=== PATIENT | male | born 1980 | race Caucasian/White ===

== ENCOUNTER 2022-03-01 16:31 | Inpatient (IN) | payer BC ==
[2022-03-01] MEDS ORDERED: AMPICILLIN-SULBACTAM 3 GM in SODIUM CHLORIDE 0.9% 100 ML IVPB STA (16:57)
[2022-03-01] MEDS ORDERED: SODIUM CHLORIDE 0.9% 1,000 ML IV ONE (16:57)
[2022-03-01] MEDS ORDERED: LABETALOL 5 MG/ML VIAL MDV IVP STA ×2 (16:58→19:33)
--- NOTE | 2022-03-01 17:01 | ED ---
Skin/Abscess/FB HPI - General Chief complaint: Skin/Abscess/Foreign Body Stated complaint: Boil Time Seen by Provider: 03/01/22 16:38 Source: patient, RN notes reviewed Mode of arrival: ambulatory Limitations: no limitations - History of Present Illness Initial comments: This is a pleasant 41-year-old male with a history of hypertension. He presents to emergency department today complaining of a "boil "to his rectal area. Patient states it seemed to start this morning. Patient states he felt like he had to have a bowel movement. It felt like something was blocking the way. He is denying any pain. Patient is getting some mucoid discharge in the area at this time. Has no history of similar afflictions. Patient does have a history of hypertension was noted be hypertensive in triage. Initial blood pressure 242/137. Patient states that he previously was treated with antihypertensives but does not take them. Patient denying any other symptomology at this time. Patient does smoke cigarettes occasionally. No headache, no fever or chills, no changes in vision or hearing, no sore throat or difficulty with speech, no neck pain, no chest pain or shortness of breath, no abdominal pain, no nausea or vomiting, no changes in urination or bowel movements, no numbness or tingling, no extremity pain, no skin rashes or lesions. Past medical, surgical, social, and family history reviewed. - Related Data Home Medications Medication Instructions Recorded Confirmed No Known Home Medications 03/01/22 03/01/22 Allergies Allergy/AdvReac Type Severity Reaction Status Date / Time No Known Allergies Allergy Verified 03/01/22 20:02 Review of Systems ROS Statement: Those systems with pertinent positive or pertinent negative responses have been documented in the HPI. ROS Other: All systems not noted in ROS Statement are negative. Past Medical History Past Medical History: Hypertension History of Any Multi-Drug Resistant Organisms: None Reported Past Surgical History: No Surgical Hx Reported Smoking Status: Current every day smoker Past Alcohol Use History: None Reported Past Drug Use History: Marijuana General Exam - General Exam Comments Initial Comments: Patient noted to be hypertensive at 242/137. However does not appear to be ill or toxic otherwise. Appears to be mildly anxious. Cranial nerves II through XII grossly intact. Limitations: no limitations General appearance: alert, anxious, obese Head exam: Present: atraumatic, normocephalic, normal inspection Eye exam: Present: normal appearance, PERRL, EOMI. Absent: scleral icterus, conjunctival injection, periorbital swelling ENT exam: Present: normal exam, normal oropharynx, mucous membranes moist, normal external ear exam Neck exam: Present: normal inspection. Absent: tenderness, meningismus, lymphadenopathy Respiratory exam: Present: normal lung sounds bilaterally. Absent: respiratory distress, wheezes, rales, rhonchi, stridor Cardiovascular Exam: Present: regular rate, normal rhythm, normal heart sounds. Absent: systolic murmur, diastolic murmur, rubs, gallop, clicks GI/Abdominal exam: Present: soft, normal bowel sounds. Absent: distended, tenderness, guarding, rebound, rigid Rectal exam: Present: normal rectal tone, mass (Mass noted to the right rectal wall, above the dentate line. This is rather small and barely perceivable. There is a mucoid discharge. No evidence of bleeding. No evidence of purulent discharge. No significant perirectal erythema.), normal prostate. Absent: tenderness, prostate tenderness Extremities exam: Present: normal inspection, full ROM, normal capillary refill. Absent: tenderness, pedal edema, joint swelling, calf tenderness Back exam: Present: normal inspection Neurological exam: Present: alert, oriented X3, CN II-XII intact Psychiatric exam: Present: normal affect, normal mood Skin exam: Present: warm, dry, intact, normal color. Absent: rash Course Vital Signs 03/01/22 03/01/22 03/01/22 16:37 17:20 17:30 Temperature 98.2 F Pulse Rate 99 89 83 Respiratory 16 15 15 Rate Blood Pressure 242/137 234/129 222/114 O2 Sat by Pulse 95 99 100 Oximetry 03/01/22 03/01/22 03/01/22 17:40 17:45 18:00 Temperature Pulse Rate 82 84 79 Respiratory 14 15 15 Rate Blood Pressure 210/123 210/123 204/126 O2 Sat by Pulse 98 99 99 Oximetry 03/01/22 03/01/22 03/01/22 18:05 18:20 18:45 Temperature Pulse Rate 79 81 Respiratory 16 16 Rate Blood Pressure 175/105 183/115 198/116 O2 Sat by Pulse 100 100 Oximetry 03/01/22 03/01/22 03/01/22 19:05 19:30 19:57 Temperature Pulse Rate 75 88 82 Respiratory 16 18 16 Rate Blood Pressure 214/112 222/121 214/124 O2 Sat by Pulse 99 Oximetry - Reevaluation(s) Reevaluation #1: 03/01/22 19:41 Medical record is reviewed Symptoms are improved here in the emergency department Patient is informed of results and questions answered Patient in no distress Blood pressure came down initially but now has climbed back up again. - Consultations Consultation #1: Call placed for [facility] for depression, surgical consultation Dr. Lombardo Medical Decision Making - Medical Decision Making Patient symptomology consistent with possible internal hemorrhoid. Of course a small perianal abscess is within normal possibility. There is mucoid discharge noted. Patient does not appear to be ill or toxic otherwise. However the patient is very hypertensive and barely is not compliant with his blood pressure medication. We'll do a general workup. I'm going to image the patient's pelvis given the symptomology. Given the findings on computed tomography scan and the hypertensive urgency, going to admit the patient for further evaluation and treatment. We'll keep the patient on antibiotics. The case was discussed in detail with ED attending physician. Presentation, findings, treatment plan discussed in detail. The resident Dr. Hanna Case was actually discussed with Dr. Nicole ([facility]) admission for hypertensive urgency and surgical consultation - Lab Data Result diagrams: 03/01/22 17:14 03/01/22 17:14 Lab Results 03/01/22 03/01/22 03/01/22 Range/Units 17:14 17:14 19:29 WBC 7.4 (3.8-10.6) k/uL RBC 5.40 (4.30-5.90) m/uL Hgb 15.0 (13.0-17.5) gm/dL Hct 44.3 (39.0-53.0) % MCV 82.0 (80.0-100.0) fL MCH 27.8 (25.0-35.0) pg MCHC 33.9 (31.0-37.0) g/dL RDW 13.1 (11.5-15.5) % Plt Count 209 (150-450) k/uL MPV 8.1 Neutrophils % 75 % Lymphocytes % 19 % Monocytes % 4 % Eosinophils % 1 % Basophils % 0 % Neutrophils # 5.5 (1.3-7.7) k/uL Lymphocytes # 1.4 (1.0-4.8) k/uL Monocytes # 0.3 (0-1.0) k/uL Eosinophils # 0.1 (0-0.7) k/uL Basophils # 0.0 (0-0.2) k/uL Sodium 136 L (137-145) mmol/L Potassium 4.2 (3.5-5.1) mmol/L Chloride 101 (98-107) mmol/L Carbon Dioxide 22 (22-30) mmol/L Anion Gap 13 mmol/L BUN 13 (9-20) mg/dL Creatinine 0.51 L (0.66-1.25) mg/dL Est GFR (CKD-EPI)AfAm >90 (>60 ml/min/1.73 sqM) Est GFR (CKD-EPI)NonAf >90 (>60 ml/min/1.73 sqM) Glucose 169 H (74-99) mg/dL Calcium 9.3 (8.4-10.2) mg/dL Magnesium 1.7 (1.6-2.3) mg/dL C-Reactive Protein 1.6 H (<1.0) mg/dL Urine Color Light Yellow Urine Appearance Clear (Clear) Urine pH 7.0 (5.0-8.0) Ur Specific [place] 1.036 H (1.001-1.035) Urine Protein Negative (Negative) Urine Glucose (UA) Trace H (Negative) Urine Ketones Negative (Negative) Urine Blood Negative (Negative) Urine Nitrite Negative (Negative) Urine Bilirubin Negative (Negative) Urine Urobilinogen <2.0 (<2.0) mg/dL Ur Leukocyte Esterase Negative (Negative) - EKG Data EKG Comments: EKG done at 1658 and reviewed by the ED attending physician reveals sinus rhythm with a rate of 89, normal intervals, pulmonary disease pattern. 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 No acute ST or T-wave changes. No comparison study. - Radiology Data Radiology results: report reviewed, image reviewed Sigmoid mass consistent with lipoma, 7.5 x 3 cm per radiology Disposition Clinical Impression: Hypertensive urgency, Rectosigmoiditis, Mass of colon Disposition: ADMITTED IP TO THIS [facility] Condition: Fair Referrals: None,Stated [Primary Care Provider] - 1-2 days Time of Disposition: 19:34 Decision to Admit Reason: Admit from EC Decision Time: 19:34
[2022-03-01 17:33] LABS: Basophils % (A) 0 %; Eosinophils # (A) 0.1 k/uL (0-0.7); Eosinophils % (A) 1 %; HCT 44.3 % (39.0-53.0); Lymphocytes # (A) 1.4 k/uL (1.0-4.8); Lymphocytes % (A) 19 %; MCH 27.8 pg (25.0-35.0); MCHC 33.9 g/dL (31.0-37.0); Mean Platelet Volume 8.1; Monocytes # (A) 0.3 k/uL (0-1.0); Monocytes % (A) 4 %; Neutrophils # (A) 5.5 k/uL (1.3-7.7); Neutrophils % (A) 75 %; Platelet Count 209 k/uL (150-450); RDW 13.1 % (11.5-15.5); WBC 7.4 k/uL (3.8-10.6)
[2022-03-01 17:51] LABS: African American GFR (CKD) >90 (>60 ml/min/1.73 sqM); Anion Gap 13 mmol/L; Blood Urea Nitrogen 13 mg/dL (9-20); C Reactive Protein 1.6 mg/dL (<1.0); Calcium 9.3 mg/dL (8.4-10.2); Carbon Dioxide 22 mmol/L (22-30); Chloride 101 mmol/L (98-107); Glucose 169 mg/dL (74-99); Magnesium 1.7 mg/dL (1.6-2.3); Non-African American GFR(CKD) >90 (>60 ml/min/1.73 sqM); Potassium 4.2 mmol/L (3.5-5.1); Sodium 136 mmol/L (137-145)
--- NOTE | 2022-03-01 18:01 | XR ---
EXAMINATION TYPE: XR chest 1V portable DATE OF EXAM: 03/01/2022 COMPARISON: 02/08/2012 HISTORY: Hypertension TECHNIQUE: Single view FINDINGS: Heart and mediastinum are normal. Lungs are clear. Diaphragm is normal. Bony thorax is inta ct. IMPRESSION: Normal chest. No change.
--- NOTE | 2022-03-01 19:09 | CT ---
EXAMINATION TYPE: CT pelvis w con DATE OF EXAM: 03/01/2022 COMPARISON: None HISTORY: Rectal mass CT DLP: 2913 mGycm Automated exposure control for dose reduction was used. CONTRAST: Performed with IV Contrast, patient injected with 100ML mL of Isovue 370. Images obtained from the iliac crests to the floor the pelvis with IV contrast. There is no ascites. The pelvic ring is intact. Proximal femurs and hip joints are intact. Sacroiliac joints are intact. The bladder distends smoothly. No free fluid in the pelvis. There is fat density mass in the mid sigm oid colon consistent with a lipoma that measures 7.5 x 3 cm. No mass seen involving the rectum. No presacral edema. No perirectal mass. IMPRESSION: Large fat density mass in the mid sigmoid colon consistent with a lipoma. No sign of a bowel obstruct ion.
[2022-03-01] MEDS ORDERED: NALOXONE 0.4 MG/ML 1 ML VIAL IV PRN (19:45)
[2022-03-01] MEDS ORDERED: ONDANSETRON 4 MG/2 ML VIAL IVP PRN (19:45)
[2022-03-01] MEDS ORDERED: SODIUM CHLORIDE 0.9% 1,000 ML IV SCH (19:45)
[2022-03-01] MEDS ORDERED: MORPHINE SULFATE 4 MG/ML SYRINGE IV PRN (19:45)
[2022-03-01] MEDS ORDERED: hydrALAZINE HCL 20 MG/ML 1 ML VIAL IVP PRN (19:49)
[2022-03-01] MEDS ORDERED: LORazepam 2 MG/ML INJ IV PRN (20:03)
[2022-03-01] MEDS ORDERED: LORazepam 2 MG/ML INJ IV STA (20:04)
[2022-03-01 20:06] LABS: Appearance,Urine Clear (Clear); Bilirubin,Urine Negative (Negative); Blood,Urine Negative (Negative); Color,Urine Light Yellow; Glucose,Urine (UA) Trace (Negative); Ketones,Urine Negative (Negative); Leukocyte Esterase,Urine Negative (Negative); Nitrite,Urine Negative (Negative); Protein,Urine Negative (Negative); Specific Gravity,Urine 1.036 (1.001-1.035); Urobilinogen,Urine <2.0 mg/dL (<2.0)
--- NOTE | 2022-03-02 01:37 | P.HPIM ---
History of Present Illness H&P Date: 03/01/22 The patient is a 41-year-old male with a PMH of hypertension who presents to the emergency room with complaints of pelvic mass. Patient reports that he had been in his usual state of health until earlier today when he was at work and while attempting to defecate, he palpated a mass in his pelvis. He also reported some fecal hesitancy, which prompted him to come to the emergency room. As per the ED provider, upon rectal exam, mucoid fluid was discharged from the anus. CT pelvis reveals a large fat density mass in the mid sigmoid colon consistent with a lipoma with no signs of bowel obstruction. Patient denied experiencing any pain. He also denied fever, chills, change in bowel habitus. EKG in the emergency room revealed sinus rhythm at 89 bpm with a left anterior fascicular block. Chest x-ray was unremarkable. Laboratory evaluation was remarkable for glucose 169 and CRP 1.6. The patient was severely hypertensive upon presentation with BP 242/137. The patient reports a history of hypertension although reports that he has not seen a physician or taken any antihypertensives for several years. Review of systems: Pertinent positives and negatives as discussed in HPI, a complete review of systems was performed and all other systems are negative. Physical examination: General: non toxic, no distress, appears at stated age, morbidly obese Derm: no unusual rashes/lesions, warm Head: atraumatic, normocephalic, symmetric Eyes: EOMI, no lid lag, anicteric sclera, pupils equal round reactive to light ENT: Nose and ears atraumatic Neck: No cervical lymphadenopathy, trachea midline, supple Mouth: no lip lesion, mucus membranes moist Cardiovascular: S1S2 reg, no murmur, positive dorsalis pedis pulse bilateral, no edema Lungs: CTA bilateral, no rhonchi, no rales, no accessory muscle use Abdominal: soft, nontender to palpation, no guarding Rectal exam: No obvious rectal mass or skin abnormality noted, no tenderness or discharge appreciated Ext: muscle strength 5 out of 5 in all 4 extremities grossly, no gross muscle atrophy, no contractures, Neuro: CN II-XI grossly intact, no gross focal neuro deficits Psych: Alert, oriented, appropriate affect Assessment/plan Hypertensive urgency -Start patient on Norvasc and hydrochlorothiazide -Strongly urged patient on importance of adequate blood pressure control for long-term health Pelvic mass with concern for possible discharge and abscess -Currently low suspicion for infected mass -Surgery consulted -Follow up blood culture DVT prophylaxis -Heparin subcu The patient is admitted with an anticipated greater than 2 midnight stay for evaluation of hypertensive urgency. CODE STATUS: Full Code Discussed with: Patient Anticipated discharge date: in am Anticipated discharge place: Home Past Medical History Past Medical History: Hypertension History of Any Multi-Drug Resistant Organisms: None Reported Past Surgical History: No Surgical Hx Reported Smoking Status: Current every day smoker Past Alcohol Use History: None Reported Past Drug Use History: Marijuana - Past Family History Father Family Medical History: Hypertension Medications and Allergies Home Medications Medication Instructions Recorded Confirmed Type No Known Home Medications 03/01/22 03/01/22 History Allergies Allergy/AdvReac Type Severity Reaction Status Date / Time No Known Allergies Allergy Verified 03/01/22 20:02 Physical Exam Vitals: Vital Signs Temp Pulse Resp BP Pulse Ox 03/02/22 01:00 82 18 192/107 98 03/01/22 22:51 76 18 149/108 98 03/01/22 21:23 76 18 201/112 98 03/01/22 20:45 76 18 206/115 03/01/22 19:57 82 16 214/124 03/01/22 19:30 88 18 222/121 03/01/22 19:05 75 16 214/112 99 03/01/22 18:45 198/116 03/01/22 18:20 81 16 183/115 100 03/01/22 18:05 79 16 175/105 100 03/01/22 18:00 79 15 204/126 99 03/01/22 17:45 84 15 210/123 99 03/01/22 17:40 82 14 210/123 98 03/01/22 17:30 83 15 222/114 100 03/01/22 17:20 89 15 234/129 99 03/01/22 16:37 98.2 F 99 16 242/137 95 Intake and Output 03/01/22 03/01/22 03/02/22 14:59 22:59 06:59 Other: Weight 158.757 kg Results CBC & Chem 7: 03/01/22 17:14 03/01/22 17:14 Labs: Abnormal Lab Results - Last 24 Hours (Table) 03/01/22 03/01/22 Range/Units 17:14 19:29 Sodium 136 L (137-145) mmol/L Creatinine 0.51 L (0.66-1.25) mg/dL Glucose 169 H (74-99) mg/dL C-Reactive Protein 1.6 H (<1.0) mg/dL Ur Specific Alpha 1.036 H (1.001-1.035) Urine Glucose (UA) Trace H (Negative)
[2022-03-02] MEDS: AMPICILLIN-SULBACTAM 3 GM in SODIUM CHLORIDE 0.9% 100 ML IVPB SCH ×6 (06:12→23:24)
[2022-03-02] MEDS ORDERED: amLODIPine 10 MG TAB PO STA (06:24)
[2022-03-02 08:34] LABS: Basophils % (A) 0 %; Eosinophils # (A) 0.2 k/uL (0-0.7); Eosinophils % (A) 3 %; HCT 43.3 % (39.0-53.0); HGB 14.5 gm/dL (13.0-17.5); Lymphocytes # (A) 1.1 k/uL (1.0-4.8); Lymphocytes % (A) 14 %; MCH 27.9 pg (25.0-35.0); MCHC 33.5 g/dL (31.0-37.0); MCV 83.3 fL (80.0-100.0); Monocytes # (A) 0.4 k/uL (0-1.0); Monocytes % (A) 5 %; Neutrophils # (A) 6.5 k/uL (1.3-7.7); Neutrophils % (A) 79 %; Platelet Count 180 k/uL (150-450); RDW 13.4 % (11.5-15.5); WBC 8.3 k/uL (3.8-10.6)
[2022-03-02 08:46] LABS: African American GFR (CKD) >90 (>60 ml/min/1.73 sqM); Anion Gap 9 mmol/L; Blood Urea Nitrogen 8 mg/dL (9-20); Calcium 8.5 mg/dL (8.4-10.2); Carbon Dioxide 20 mmol/L (22-30); Chloride 104 mmol/L (98-107); Glucose 171 mg/dL (74-99); Non-African American GFR(CKD) >90 (>60 ml/min/1.73 sqM); Potassium 3.9 mmol/L (3.5-5.1); Sodium 133 mmol/L (137-145)
[2022-03-02] MEDS: HEPARIN SODIUM,PORCINE/PF 5,000 UNIT/0.5 ML SYRINGE SQ SCH ×3 (09:21→23:25)
[2022-03-02] MEDS ORDERED: hydrALAZINE HCL 25 MG TAB PO STA (11:12)
[2022-03-02] MEDS: LOSARTAN 50 MG TAB PO SCH (13:08)
[2022-03-02] MEDS: LORazepam 1 MG/0.5 ML VIAL IV PRN ×2 (13:18→21:16)
--- NOTE | 2022-03-02 13:22 | P.PN ---
Subjective Progress Note Date: 03/02/22 Patient has no new complaints at the time of evaluation. Blood pressures are still quite high. Surgery consult is pending. Patient feels like the mass in his pelvis is less prominent. Gen: awake, alert HEENT: normocephalic, atraumatic, good hearing acuity, moist mucous membranes Resp: good air exchange, breathing comfortably with no accessory muscle use CVS: good distal perfusion x 4, GI: soft, NTTP, ND : no SPT, no CVAT, barry catheter not present MSK: no pitting edema, no clubbing Neuro: non-focal, moving all extremities Psych: cooperative, euthymic mood Assessment/plan: Hypertensive urgency -Start patient on Norvasc and hydrochlorothiazide -Added losartan -Added hydralazine PRN for high BP -Strongly urged patient on importance of adequate blood pressure control for long-term health Pelvic mass with concern for possible discharge and abscess -Currently low suspicion for infected mass -Surgery consulted, pending recs -Follow up blood culture -on unasyn DVT prophylaxis -Heparin subcu The patient is admitted with an anticipated greater than 2 midnight stay for evaluation of hypertensive urgency. CODE STATUS: Full Code Discussed with: Patient Anticipated discharge date: in am Anticipated discharge place: Home Objective - Vital Signs Vital signs: Vital Signs Temp 97.7 F 03/02/22 08:39 Pulse 90 03/02/22 12:34 Resp 18 03/02/22 12:34 BP 188/110 03/02/22 12:34 Pulse Ox 98 03/02/22 12:34 FiO2 Intake & Output 03/01/22 03/02/22 03/02/22 18:59 06:59 18:59 Weight 158.757 kg - Labs CBC & Chem 7: 03/02/22 08:20 03/02/22 08:20 Labs: Abnormal Lab Results - Last 24 Hours (Table) 03/01/22 03/01/22 03/02/22 Range/Units 17:14 19:29 08:20 Sodium 136 L 133 L (137-145) mmol/L Carbon Dioxide 20 L (22-30) mmol/L BUN 8 L (9-20) mg/dL Creatinine 0.51 L 0.45 L (0.66-1.25) mg/dL Glucose 169 H 171 H (74-99) mg/dL C-Reactive Protein 1.6 H (<1.0) mg/dL Ur Specific [place] 1.036 H (1.001-1.035) Urine Glucose (UA) Trace H (Negative)
[2022-03-02] MEDS: ACETAMINOPHEN TAB 325 MG TAB PO PRN (14:15)
[2022-03-02] MEDS ORDERED: NITROGLYCERIN-D5W PMX 50 MG in DEXTROSE/WATER 1 250ML.BAG IV SCH (14:30)
--- NOTE | 2022-03-02 15:35 | P.GSCN ---
History of Present Illness Consult date: 03/02/22 Reason for Consult: Lipoma of the sigmoid seen on CT, hypertensive urgency History of present illness: Patient is a 41-year-old gentleman who presented to [facility] emergency department on 03/01/2022 with reports of some manner of prolapsing lesion on bowel movement earlier that day. He tells me that he had a normal bowel movement prior to that, felt like he had to go to the bathroom again had some sort of lesion prolapse which retracted on its own. He may have had some mucoid discharge, denies bleeding. He has had issues with hemorrhoids in the more distant past. His never undergone any manner of endoscopy. Has no known personal history of inflammatory bowel disease, no known family history of the same, no known family history of colon cancer or colon polyps quadrant surgical resection. He denies associated pain. He does seem to have a history of prediabetes, he tells me he's been on and off metformin multiple times over the past year or more. On arrival in the emergency department he had a markedly high blood pressure at 242/137. He denies chest pain, shortness of breath, or orthostatic symptoms. He's been admitted to the hospitalist service and started on nitro drip. There is report that he's been prescribed outpatient antihypertensives and has been noncompliant, patient tells me he is not maintain ed on any medications for blood pressure on an outpatient basis. He admits to occasional issues with diarrhea but not routinely, no reported problems with constipation or obstipation. No reported signs of GI bleeding. A computed tomography scan of the pelvis was obtained, images and official report were reviewed. There is an approximately 7.5 x 3.5 cm intramural lesion of the mid sigmoid consistent with benign lipoma. There is no evidence of associated obstruction. There are no regional inflammatory changes, no evidence of pelvic or perirectal abscess or fluid collection. No signs of colitis. Laboratory studies are unimpressive. White blood cell count today is 8.3, hemoglobin 14.5, platelet count 180. No evidence of iron deficiency on differential. RDW normal range at 13.4. Serum sodium slightly low at 133, potassium 3.9, CO2 of 20, creatinine 0.45, glucose of 171. C-reactive protein was minimally elevated at 1.6. Urinalysis showed trace glucose, otherwise normal. Review of Systems All systems: negative - Constitutional Reports as per HPI Past Medical History Past Medical History: Hypertension Additional Past Medical History / Comment(s): Obesity, "on and off of diabetic medication" History of Any Multi-Drug Resistant Organisms: None Reported Past Surgical History: No Surgical Hx Reported Past Anesthesia/Blood Transfusion Reactions: No Reported Reaction Past Psychological History: Anxiety, Depression, PTSD Smoking Status: Current some day smoker Past Alcohol Use History: Rare Past Drug Use History: Marijuana Additional Drug Use History / Comment(s): Marijuana daily recreationally. Pt smokes "maybe one" cigarette a day. - Past Family History Father Family Medical History: Hypertension Mother Family Medical History: CVA/TIA, Diabetes Mellitus, Hypertension Medications and Allergies Home Medications Medication Instructions Recorded Confirmed Type No Known Home Medications 03/01/22 03/01/22 History Allergies Allergy/AdvReac Type Severity Reaction Status Date / Time No Known Allergies Allergy Verified 03/01/22 20:02 Surgical - Exam Osteopathic Statement: *. No significant issues noted on an osteopathic st ructural exam other than those noted in the History and Physical/Consult. Vital Signs Temp Pulse Resp BP Pulse Ox 98.2 F 99 16 242/137 95 03/01/22 16:37 03/01/22 16:37 03/01/22 16:37 03/01/22 16:37 03/01/22 16:37 - General well developed, well nourished, no distress, obese - Eyes PERRL, normal ocular movement - ENT normal pinna, normal nares, normal mucosa, no hearing loss, no congestion - Neck trachea midline, no venous distension - Respiratory normal expansion, normal respiratory effort, clear to auscultation - Cardiovascular Rhythm: regular - Abdomen Abdomen is soft, nontender palpation, no guarding rebound or distention. No evidence of peritonitis, no suprapubic tenderness to palpation. Abdomen: soft, non tender - Rectum Adequate sphincter tone, no perianal pathology noted, no intraluminal mass, no significant hemorrhoidal disease appreciated. No evidence of GI bleeding. Rectum: normal sphincter tone, no hemorrhoids, no tenderness, no masses, no bleeding - Neurologic GCS 15 normal coordination, normal sensation - Psychiatric oriented to time, oriented to person, oriented to place, speech is normal, m eufemia intact Results - Labs 03/02/22 08:20 03/02/22 08:20 Abnormal Lab Results - Last 24 Hours (Table) 03/01/22 03/01/22 03/02/22 Range/Units 17:14 19:29 08:20 Sodium 136 L 133 L (137-145) mmol/L Carbon Dioxide 20 L (22-30) mmol/L BUN 8 L (9-20) mg/dL Creatinine 0.51 L 0.45 L (0.66-1.25) mg/dL Glucose 169 H 171 H (74-99) mg/dL C-Reactive Protein 1.6 H (<1.0) mg/dL Ur Specific [place] 1.036 H (1.001-1.035) Urine Glucose (UA) Trace H (Negative) Diabetes panel 03/01/22 03/02/22 Range/Units 17:14 08:20 Sodium 136 L 133 L (137-145) mmol/L Potassium 4.2 3.9 (3.5-5.1) mmol/L Chloride 101 104 (98-107) mmol/L Carbon Dioxide 22 20 L (22-30) mmol/L BUN 13 8 L (9-20) mg/dL Creatinine 0.51 L 0.45 L (0.66-1.25) mg/dL Glucose 169 H 171 H (74-99) mg/dL Calcium 9.3 8.5 (8.4-10.2) mg/dL Calcium panel 03/01/22 03/02/22 Range/Units 17:14 08:20 Calcium 9.3 8.5 (8.4-10.2) mg/dL Pituitary panel 03/01/22 03/02/22 Range/Units 17:14 08:20 Sodium 136 L 133 L (137-145) mmol/L Potassium 4.2 3.9 (3.5-5.1) mmol/L Chloride 101 104 (98-107) mmol/L Carbon Dioxide 22 20 L (22-30) mmol/L BUN 13 8 L (9-20) mg/dL Creatinine 0.51 L 0.45 L (0.66-1.25) mg/dL Glucose 169 H 171 H (74-99) mg/dL Calcium 9.3 8.5 (8.4-10.2) mg/dL Adrenal panel 03/01/22 03/02/22 Range/Units 17:14 08:20 Sodium 136 L 133 L (137-145) mmol/L Potassium 4.2 3.9 (3.5-5.1) mmol/L Chloride 101 104 (98-107) mmol/L Carbon Dioxide 22 20 L (22-30) mmol/L BUN 13 8 L (9-20) mg/dL Creatinine 0.51 L 0.45 L (0.66-1.25) mg/dL Glucose 169 H 171 H (74-99) mg/dL Calcium 9.3 8.5 (8.4-10.2) mg/dL - Imaging Chest x-ray: report reviewed, image reviewed CT scan - pelvis: report reviewed, image reviewed Assessment and Plan Assessment: 41-year-old young man with presentation that may represent a transient mucosal prolapse or potentially a high internal hemorrhoid that spontaneously reduced. Unable to exclude rectal polyp. It sounds like this lipoma of the mid sigmoid is likely an incidental finding. There is no evidence of associated obstruction no evidence of inflammatory process about the sigmoidal pelvis, no evidence of abscess or fluid collection. Abdominal exam is entirely benign, rectal exam is essentially normal. No reports of chronic diarrhea of unknown origin or GI bleeding. No previous endoscopy. His main issue right now would appear to be a hypertensive emergency, blood pressure starting to come down on nitro drip. Morbid obesity with BMI of 47.5, suspicion of diabetes mellitus type 2 or glucose intolerance. Plan: No indication for urgent surgery or endoscopy for the time being. He is presently tolerating a regular diet. Abdominal exam is benign, there are no findings on exam or imaging to implicate bowel obstruction, perirectal, or pelvic abscess. No evidence of iron deficiency anemia, no clinical signs of GI bleeding. The next in pursuing this issue will be diagnostic colonoscopy for change in bowel habits on an outpatient basis with GI or the general surgeon of his choosing once his blood pressure is under better control. Will reassess at your request. Time with Patient: Greater than 30
[2022-03-02 16:49] LABS: Glucose,Whole Blood 198 mg/dL (70-110)
[2022-03-02] MEDS: INSULIN ASPART (NovoLOG) 100 UNIT/ML VIAL SQ SCH (17:06)
[2022-03-02 19:55] LABS: Glucose,Whole Blood 186 mg/dL (70-110)
[2022-03-02] MEDS ORDERED: amLODIPine 10 MG TAB PO SCH (21:00)
[2022-03-02] MEDS: hydrALAZINE HCL 25 MG TAB PO PRN (23:26)
[2022-03-03] MEDS: ACETAMINOPHEN TAB 325 MG TAB PO PRN (02:19)
[2022-03-03] MEDS: LORazepam 1 MG/0.5 ML VIAL IV PRN (03:29)
[2022-03-03] MEDS: AMPICILLIN-SULBACTAM 3 GM in SODIUM CHLORIDE 0.9% 100 ML IVPB SCH ×2 (05:32→12:08)
[2022-03-03 05:43] LABS: Glucose,Whole Blood 173 mg/dL (70-110)
[2022-03-03] MEDS: INSULIN ASPART (NovoLOG) 100 UNIT/ML VIAL SQ SCH ×2 (06:12→12:08)
[2022-03-03] MEDS: HEPARIN SODIUM,PORCINE/PF 5,000 UNIT/0.5 ML SYRINGE SQ SCH ×2 (08:29→15:48)
[2022-03-03] MEDS: LOSARTAN 50 MG TAB PO SCH (08:29)
[2022-03-03] MEDS: hydrALAZINE HCL 25 MG TAB PO PRN (08:29)
[2022-03-03] MEDS ORDERED: hydroCHLOROthiazide 25 MG TAB PO SCH (09:00)
[2022-03-03 09:02] LABS: Basophils % (A) 0 %; Eosinophils # (A) 0.1 k/uL (0-0.7); Eosinophils % (A) 1 %; HCT 45.6 % (39.0-53.0); HGB 15.4 gm/dL (13.0-17.5); Lymphocytes # (A) 1.2 k/uL (1.0-4.8); Lymphocytes % (A) 13 %; MCH 27.9 pg (25.0-35.0); MCHC 33.8 g/dL (31.0-37.0); MCV 82.6 fL (80.0-100.0); Mean Platelet Volume 7.9; Monocytes # (A) 0.4 k/uL (0-1.0); Monocytes % (A) 5 %; Neutrophils # (A) 7.3 k/uL (1.3-7.7); Neutrophils % (A) 80 %; Platelet Count 206 k/uL (150-450); RBC 5.52 m/uL (4.30-5.90); RDW 13.2 % (11.5-15.5); WBC 9.1 k/uL (3.8-10.6)
[2022-03-03 09:24] LABS: African American GFR (CKD) >90 (>60 ml/min/1.73 sqM); Anion Gap 10 mmol/L; Blood Urea Nitrogen 13 mg/dL (9-20); Carbon Dioxide 23 mmol/L (22-30); Chloride 101 mmol/L (98-107); Glucose 179 mg/dL (74-99); Magnesium 1.9 mg/dL (1.6-2.3); Non-African American GFR(CKD) >90 (>60 ml/min/1.73 sqM); Potassium 3.6 mmol/L (3.5-5.1); Sodium 134 mmol/L (137-145)
[2022-03-03] MEDS ORDERED: LOSARTAN 50 MG TAB PO STA (09:57)
[2022-03-03] MEDS: hydrALAZINE HCL 25 MG TAB PO SCH ×2 (10:12→15:59)
[2022-03-03 11:43] LABS: Glucose,Whole Blood 224 mg/dL (70-110)
[2022-03-03] MEDS ORDERED: METOPROLOL TARTRATE 50 MG TAB PO SCH (12:00)
[2022-03-03] MEDS ORDERED: buPROPion SR 100 MG TABLET.ER PO SCH (12:00)
--- NOTE | 2022-03-03 14:27 | P.DS ---
Providers Date of admission: 03/01/22 19:37 Expected date of discharge: 03/03/22 Attending physician: Shae Gupta MD Consults: 03/02/22 15:03 Consult Physician Routine Consulting Provider: Juan Lombardo Consult Reason/Comments: Sigmoid mass Do you want consulting provider notified?: Already Contacted Primary care physician: Stated None Hospital Course: Hypertensive urgency Pelvic mass Diabetes type 2 Hyperlipidemia The patient is a 41-year-old male with a PMH of hypertension who presented to the emergency room with complaints of pelvic mass, and was admitted for hypertensive urgency. As per the ED provider, upon rectal exam, mucoid fluid was discharged from the anus. CT pelvis reveals a large fat density mass in the mid sigmoid colon consistent with a lipoma with no signs of bowel obstruction. EKG in the emergency room revealed sinus rhythm at 89 bpm with a left anterior fascicular block. Chest x-ray was unremarkable. Laboratory evaluation was remarkable for glucose 169 and CRP 1.6. The patient was severely hypertensive upon presentation with BP 242/137. Patient was started on amlodipine and HCTZ. However, he required nitro drip to bring his blood pressures into a range of systolics between 150-160. Subsequent medication additions included adding losartan 50 mg daily which was then uptitrated to 100 mg daily, hydralazine 25 mg 3 times a day, resuming his home metoprolol 100 mg twice a day. With these changes, his blood pressure remained between 150-160 systolic. Patient expressed the wish to leave the hospital and have his blood pressures followed up as outpatient. He was discharged with his new medication regimen and recommended that he follow-up with his primary care doctor within the week. Regarding his pelvic mass, surgery consulted on the patient and recommended that he have an outpatient colonoscopy. They felt that the mass seen on CT was likely reflective of a benign lipoma. I spent 35 minutes coordinating this discharge, discharge date 03/03 Gen: awake, alert HEENT: normocephalic, atraumatic, good hearing acuity, moist mucous membranes Resp: good air exchange, breathing comfortably with no accessory muscle use CVS: good distal perfusion x 4, GI: soft, NTTP, ND : no SPT, no CVAT, barry catheter not present MSK: no pitting edema, no clubbing Neuro: non-focal, moving all extremities Psych: cooperative, euthymic mood Patient Condition at Discharge: Good Plan - Discharge Summary Discharge Rx Participant: No New Discharge Prescriptions: New Losartan [Cozaar] 100 mg PO DAILY #60 tab amLODIPine [Norvasc] 10 mg PO HS #30 tab hydrALAZINE HCL [Apresoline] 25 mg PO TID #90 tab hydroCHLOROthiazide [Hydrodiuril] 25 mg PO DAILY #30 tab Continue metFORMIN HCL [Glucophage] 1,000 mg PO BID buPROPion HCL [buPROPion HCL SR] 100 mg PO DAILY Empagliflozin [Jardiance] 25 mg PO DAILY Atorvastatin [Lipitor] 20 mg PO HS #30 tab PARoxetine [Paxil] 20 mg PO HS sitaGLIPtin [Januvia] 100 mg PO DAILY Metoprolol Tartrate [Lopressor] 100 mg PO BID #60 tab Discontinued Lisinopril-Hctz 20-25 mg [Zestoretic 20-25] 1 tab PO DAILY Discharge Medication List Atorvastatin [Lipitor] 20 mg PO HS #30 tab 03/03/22 [Rx] Empagliflozin [Jardiance] 25 mg PO DAILY 03/03/22 [History] Losartan [Cozaar] 100 mg PO DAILY #60 tab 03/03/22 [Rx] Metoprolol Tartrate [Lopressor] 100 mg PO BID #60 tab 03/03/22 [Rx] PARoxetine [Paxil] 20 mg PO HS 03/03/22 [History] amLODIPine [Norvasc] 10 mg PO HS #30 tab 03/03/22 [Rx] buPROPion HCL [buPROPion HCL SR] 100 mg PO DAILY 03/03/22 [History] hydrALAZINE HCL [Apresoline] 25 mg PO TID #90 tab 03/03/22 [Rx] hydroCHLOROthiazide [Hydrodiuril] 25 mg PO DAILY #30 tab 03/03/22 [Rx] metFORMIN HCL [Glucophage] 1,000 mg PO BID 03/03/22 [History] sitaGLIPtin [Januvia] 100 mg PO DAILY 03/03/22 [History] Follow up Appointment(s)/Referral(s): None,Stated [Primary Care Provider] - 1-2 days Discharge Disposition: HOME SELF-CARE
[2022-03-03 17:27] VITALS: BP 156/92; PULSE 86; RESP 18; TEMP 97.8
[2022-03-03] MEDS ORDERED: ATORVASTATIN 20 MG TAB PO SCH (21:00)
[2022-03-03] MEDS ORDERED: PARoxetine 20 MG TAB PO SCH (21:00)
[2022-03-04] MEDS ORDERED: LOSARTAN 50 MG TAB PO SCH (09:00)
== END 2022-03-03 17:18 | disposition home or self-care (01) | DRG 305 ==
LOC: EC 16:31 → 3SCARD 19:37
PROVIDERS: ADMIT Internal Medicine; ATTEND Internal Medicine
DX: I16.0 Hypertensive urgency (principal); I16.1 Hypertensive emergency; K61.0 Anal abscess; Z68.42 Body mass index [BMI] 45.0-49.9, adult; D17.5 Benign lipomatous neoplasm of intra-abdominal organs; E11.9 Type 2 diabetes mellitus without complications; E66.01 Morbid (severe) obesity due to excess calories; E78.5 Hyperlipidemia, unspecified; F17.210 Nicotine dependence, cigarettes, uncomplicated; F43.10 Post-traumatic stress disorder, unspecified; I10 Essential (primary) hypertension; I44.4 Left anterior fascicular block; Z79.899 Other long term (current) drug therapy; Z91.14 Patient's other noncompliance with medication regimen; Z91.199 Patient's noncompliance with other medical treatment and regimen due to unspecified reason
CPT/HCPCS: 36415; 71045; 72193; 80048; 81003; 83036; 83735; 85025; 86140; 87040; 93005; 96361; 96365; 96366; 96367; 96372; 96375; 96376; 99285

== ENCOUNTER 2024-03-29 14:19 | Observation (INO) | payer BC ==
--- NOTE | 2024-03-29 15:19 | ED ---
General Adult HPI - General Chief complaint: Headache Stated complaint: High blood pressure Time Seen by Provider: 03/29/24 14:45 Source: patient, RN notes reviewed, old records reviewed Mode of arrival: ambulatory Limitations: no limitations - History of Present Illness Initial comments: Is a 44-year-old male who presents to the emergency department because his blood pressure was high at work. Patient states he did not feel good started having headache and then he had quite a bit of diarrhea and so at work they took his blood pressure at the pharmacy and it was elevated significantly so they sent him into the emergency department. Patient states he has been out of his meds for at least a month. Patient states he knows he should take him but he has been very busy. Patient also states he smokes marijuana. Patient denies any chest pain or palpitations or shortness of breath. Patient denies blurred vision. Does complain of a headache. Patient denies any nausea vomiting. - Related Data Previous Rx's Medication Instructions Recorded Losartan [Cozaar] 100 mg PO DAILY #60 tab 03/29/24 Metoprolol Tartrate [Lopressor] 100 mg PO BID #60 tab 03/29/24 amLODIPine 10 mg PO DAILY #30 tab 03/29/24 hydrALAZINE HCL 50 mg PO QID #120 tab 03/29/24 Allergies Allergy/AdvReac Type Severity Reaction Status Date / Time No Known Allergies Allergy Verified 03/29/24 15:19 Review of Systems ROS Statement: Those systems with pertinent positive or pertinent negative responses have been documented in the HPI. ROS Other: All systems not noted in ROS Statement are negative. Past Medical History Past Medical History: Diabetes Mellitus, Hypertension Additional Past Medical History / Comment(s): Obesity, "on and off of diabetic m edication" History of Any Multi-Drug Resistant Organisms: None Reported Past Surgical History: No Surgical Hx Reported Past Anesthesia/Blood Transfusion Reactions: No Reported Reaction Past Psychological History: Anxiety, Depression, PTSD Smoking Status: Former smoker Past Alcohol Use History: Rare Past Drug Use History: Marijuana - Past Family History Father Family Medical History: Hypertension Mother Family Medical History: CVA/TIA, Diabetes Mellitus, Hypertension General Exam - General Exam Comments Initial Comments: GENERAL: Patient is well-developed and well-nourished. Patient is nontoxic and well- hydrated and is in mild distress. ENT: Neck is soft and supple. No significant lymphadenopathy is noted. Oropharynx is clear. Moist mucous membranes. Neck has full range of motion without eliciting any pain. EYES: The sclera were anicteric and conjunctiva were pink and moist. Extraocular movements were intact and pupils were equal round and reactive to light. Eyelids were unremarkable. PULMONARY: Unlabored respirations. Good breath sounds bilaterally. No audible rales rhonchi or wheezing was noted. CARDIOVASCULAR: There is a regular rate and rhythm without any murmurs gallops or rubs. ABDOMEN: Soft and nontender with normal bowel sounds. SKIN: Skin is clear with no lesions or rashes and otherwise unremarkable. NEUROLOGIC: Patient is alert and oriented x3. Cranial nerves II through XII are grossly intact. Motor and sensory are also intact. Normal speech, volume and content. Symmetrical smile. MUSCULOSKELETAL: Normal extremities with adequate strength and full range of motion. LYMPHATICS: No significant lymphadenopathy is noted PSYCHIATRIC: Normal psychiatric evaluation. Limitations: no limitations Course Vital Signs 03/29/24 03/29/24 03/29/24 14:33 16:04 16:40 Temperature 98.4 F Pulse Rate 112 H 108 H 92 Respiratory 18 20 20 Rate Blood Pressure 230/123 192/100 187/101 O2 Sat by Pulse 96 96 95 Oximetry 03/29/24 03/29/24 03/29/24 16:55 17:56 18:32 Temperature Pulse Rate 87 88 86 Respiratory 20 20 20 Rate Blood Pressure 178/100 191/105 187/110 O2 Sat by Pulse 96 97 98 Oximetry 03/29/24 03/29/24 19:36 20:07 Temperature Pulse Rate 99 98 Respiratory 18 18 Rate Blood Pressure 207/104 189/96 O2 Sat by Pulse 97 97 Oximetry Medical Decision Making - Medical Decision Making EKG is interpreted by myself. EKG shows sinus rhythm at 94 bpm KS interval 184 QRS is 88 QT interval 347 QTc is 398. Patient's EKG shows Q waves inferiorly no ST segment elevation Was pt. sent in by a medical professional or institution ([facility]ENN[facility]ER Shaw, [employer], urgent care, hospital, or assisted...) When possible be specific @ -No Did you speak to anyone other than the patient for history (EMS, parent, family, police, friend...)? What history was obtained from this source @ -No Did you review nursing and triage notes (agree or disagree)? Why? @ -I reviewed and agree with nursing and triage notes Were old charts reviewed (outside hosp., previous admission, EMS record, old EKG, old radiological studies, urgent care reports/EKG's, assisted records)? Report findings @ -No old charts were reviewed Differential Diagnosis? @ -Differential Headache: Migraine, tension, cluster, carbon monoxide, central venous thrombosis, pension karma temporal arteritis, acute closure glaucoma, intercranial hemorrhage, mastoiditis, sinusitis, head injury, this is not meant to be an all-inclusive list. EKG interpreted by me (3pts min.). @ -As above X-rays interpreted by me (1pt min.). @ -Chest x-ray shows no acute abnormality CT interpreted by me (1pt min.). @ -CAT scan of the brain shows no acute abnormality U/S interpreted by me (1pt. min.). @ -None done What testing was considered but not performed or refused? (CT, X-rays, U/S, labs)? Why? @ -None What meds were considered but not given or refused? Why? @ -None Did you discuss the management of the patient with other professionals (professionals i.e. , PA, INTERNATIONAL PROJECT ENGINEER, lab, RT, psych nurse, social media job titles, ehs engineer, teacher, security police officer, returned case inspector)? Give summary @ -No Was smoking cessation discussed for >3mins.? @ -No Was critical care preformed (if so, how long)? @ -No Were there social determinants of health that impacted care today? How? (Homelessness, low income, unemployed, alcoholism, drug addiction, transportation, low edu. Level, literacy, decrease access to med. care, half-way, rehab)? @ -No Was there de-escalation of care discussed even if they declined (Discuss DNR or withdrawal of care, Hospice)? DNR status @ -No What co-morbidities impacted this encounter? (DM, HTN, Smoking, COPD, CAD, Cancer, CVA, ARF, Chemo, Hep., AIDS, mental health diagnosis, sleep apnea, morbid obesity)? @ -None Was patient admitted / discharged? Hospital course, mention meds given and route, prescriptions, significant lab abnormalities, going to OR and other pertinent info. @ -Patient was given labetalol 20 mg which brought down the pressure. Pressure started to creep up later and he was given 10 of hydralazine and given his nighttime dose of metoprolol 100 mg patient states that he is post be on 4 medications but he typically cannot afford them but he will check with Dr. Liu about changing to some cheaper medications. We did contact Dr. Liu and he wanted the patient on these 4 medications losartan amlodipine metoprolol and hydralazine. I will prescribe those medications for 1 month for the patient. After a while the patient's blood pressure was not coming down so I spoke with Dr. Liu and he agreed to admit the patient. Undiagnosed new problem with uncertain prognosis? @ -No Drug Therapy requiring intensive monitoring for toxicity (Heparin, Nitro, Insulin, Cardizem)? @ -No Were any procedures done? @ -No Diagnosis/symptom? @ -Hypertensive urgency Acute, or Chronic, or Acute on Chronic? @ -Acute Uncomplicated (without systemic symptoms) or Complicated (systemic symptoms)? @ -Complicated Side effects of treatment? @ -No Exacerbation, Progression, or Severe Exacerbation? @ -No Poses a threat to life or bodily function? How? (Chest pain, USA, CT, pneumonia, PE, COPD, DKA, ARF, appy, cholecystitis, CVA, Diverticulitis, Homicidal, Suicidal, threat to staff... and all critical care pts) @ -Yes this could turn into hypertensive emergency causing endorgan dysfunction - Lab Data Result diagrams: 03/29/24 15:17 03/29/24 16:00 Lab Results 03/29/24 03/29/24 Range/Units 15:17 16:00 WBC 9.8 (3.8-10.6) k/uL RBC 5.68 (4.30-5.90) m/uL Hgb 16.0 (13.0-17.5) gm/dL Hct 46.0 (39.0-53.0) % MCV 81.0 (80.0-100.0) fL MCH 28.1 (25.0-35.0) pg MCHC 34.7 (31.0-37.0) g/dL RDW 14.2 (11.5-15.5) % Plt Count 143 L (150-450) k/uL MPV 9.7 Neutrophils % 80 % Lymphocytes % 13 % Monocytes % 5 % Eosinophils % 2 % Basophils % 0 % Neutrophils # 7.8 H (1.3-7.7) k/uL Lymphocytes # 1.3 (1.0-4.8) k/uL Monocytes # 0.5 (0-1.0) k/uL Eosinophils # 0.2 (0-0.7) k/uL Basophils # 0.0 (0-0.2) k/uL Sodium 135 L (137-145) mmol/L Potassium 4.1 (3.5-5.1) mmol/L Chloride 103 (98-107) mmol/L Carbon Dioxide 21 L (22-30) mmol/L Anion Gap 11 mmol/L BUN 13 (9-20) mg/dL Creatinine 0.50 L (0.66-1.25) mg/dL Est GFR (CKD-EPI)AfAm >90 (>60 ml/min/1.73 sqM) Est GFR (CKD-EPI)NonAf >90 (>60 ml/min/1.73 sqM) Glucose 171 H (74-99) mg/dL Calcium 9.3 (8.4-10.2) mg/dL Magnesium 1.6 (1.6-2.3) mg/dL Total Bilirubin 0.7 (0.2-1.3) mg/dL AST 26 (17-59) U/L ALT 21 (4-49) U/L Alkaline Phosphatase 84 (38-126) U/L Total Protein 7.5 (6.3-8.2) g/dL Albumin 4.4 (3.5-5.0) g/dL Disposition Clinical Impression: Hypertensive urgency Disposition: ADMITTED IP TO THIS HOSP Condition: Good Instructions (If sedation given, give patient instructions): Hypertension (ED) Prescriptions: amLODIPine 10 mg PO DAILY #30 tab Losartan [Cozaar] 100 mg PO DAILY #60 tab hydrALAZINE HCL 50 mg PO QID #120 tab Metoprolol Tartrate [Lopressor] 100 mg PO BID #60 tab Is patient prescribed a controlled substance at d/c from ED?: No Referrals: Mj Liu MD [Primary Care Provider] - 1-2 days Time of Disposition: 19:09
[2024-03-29 15:24] LABS: Basophils % (A) 0 %; Eosinophils # (A) 0.2 k/uL (0-0.7); Eosinophils % (A) 2 %; Lymphocytes # (A) 1.3 k/uL (1.0-4.8); Lymphocytes % (A) 13 %; MCH 28.1 pg (25.0-35.0); MCHC 34.7 g/dL (31.0-37.0); Mean Platelet Volume 9.7; Monocytes # (A) 0.5 k/uL (0-1.0); Monocytes % (A) 5 %; Neutrophils # (A) 7.8 k/uL (1.3-7.7); Neutrophils % (A) 80 %; Platelet Count 143 k/uL (150-450); RBC 5.68 m/uL (4.30-5.90); RDW 14.2 % (11.5-15.5); WBC 9.8 k/uL (3.8-10.6)
--- NOTE | 2024-03-29 15:52 | XR ---
EXAMINATION TYPE: XR chest 2V DATE OF EXAM: 03/29/2024 3:39 PM COMPARISON: Chest radiographs from 03/01/2022 CLINICAL INDICATION: Male, 44 years old with history of Chest Pain; [facility] TECHNIQUE: XR chest 2V Frontal and lateral views of the chest. FINDINGS: Lungs/Pleura: There is no evidence of pleural effusion, focal consolidation, or pneumothorax. Pulmonary vascularity: Unremarkable. Heart/mediastinum: Cardiomediastinal silhouette is unremarkable. Musculoskeletal: No acute osseous pathology. Other findings: None IMPRESSION: No acute cardiopulmonary disease/process. [facility], , 03/29/2024 3:50 PM
--- NOTE | 2024-03-29 15:53 | CT ---
EXAMINATION TYPE: CT brain wo con DATE OF EXAM: 03/29/2024 3:39 PM COMPARISON: None. CLINICAL INDICATION: Male, 44 years old with history of Headache with high blood pressure, Headache w ith high blood pressure TECHNIQUE: Brain: Axial CT images of the brain were obtained with coronal and sagittal reformats created and rev iewed. Contrast used: None. Oral contrast used: None. CT DLP: 1154.4 mGycm, Automated exposure control for dose reduction was used. FINDINGS: Brain: Extra-axial spaces: No abnormal extra-axial fluid collections. Ventricular system: Within normal limits Cerebral parenchyma: No acute intraparenchymal hemorrhage or mass effect. The flores-white junction is well differentiated. Cerebellum: Unremarkable. Mass effect: No evidence of midline shift. Intracranial vasculature: unremarkable Soft tissues: Normal. Calvarium/osseous structures: No depressed skull fracture. Paranasal sinuses and mastoid air cells: Mild scattered paranasal sinus disease. Visualized orbits: Orbital contents are intact. IMPRESSION: No acute intracranial process. [facility], , 03/29/2024 3:51 PM
[2024-03-29] MEDS: ACETAMINOPHEN TAB 500 MG TAB PO STA (15:57)
[2024-03-29] MEDS: LABETALOL 5 MG/ML VIAL MDV IVP STA (15:57)
[2024-03-29 16:29] LABS: ALT 21 U/L (4-49); AST 26 U/L (17-59); African American GFR (CKD) >90 (>60 ml/min/1.73 sqM); Albumin 4.4 g/dL (3.5-5.0); Alkaline Phosphatase 84 U/L (38-126); Anion Gap 11 mmol/L; Blood Urea Nitrogen 13 mg/dL (9-20); Calcium 9.3 mg/dL (8.4-10.2); Carbon Dioxide 21 mmol/L (22-30); Chloride 103 mmol/L (98-107); Glucose 171 mg/dL (74-99); Magnesium 1.6 mg/dL (1.6-2.3); Non-African American GFR(CKD) >90 (>60 ml/min/1.73 sqM); Potassium 4.1 mmol/L (3.5-5.1); Sodium 135 mmol/L (137-145); Total Bilirubin 0.7 mg/dL (0.2-1.3); Total Protein 7.5 g/dL (6.3-8.2)
[2024-03-29] MEDS: hydrALAZINE HCL 20 MG/ML 1 ML VIAL IVP STA ×2 (18:31→19:21)
[2024-03-29] MEDS: METOPROLOL TARTRATE 50 MG TAB PO STA (19:20)
[2024-03-29] MEDS: LORazepam 2 MG/ML INJ IV STA (21:12)
[2024-03-29] MEDS: SODIUM CHLORIDE 0.9% 1,000 ML IV ONE (21:15)
[2024-03-29] MEDS: METOPROLOL TARTRATE 50 MG TAB PO SCH (21:16)
[2024-03-29] MEDS: hydrALAZINE HCL 50 MG TAB PO SCH (22:08)
[2024-03-30] MEDS: ACETAMINOPHEN TAB 325 MG TAB PO PRN (02:15)
[2024-03-30] MEDS: LOSARTAN 50 MG TAB PO SCH (08:17)
[2024-03-30] MEDS: amLODIPine 10 MG TAB PO SCH (08:17)
--- NOTE | 2024-03-30 08:31 | P.HPIM ---
History of Present Illness H&P Date: 03/30/24 Chief Complaint: Hypertension urgency The patient is a 44-year-old male who is essentially admitted for hypertension which is uncontrolled. He started having significant headache yesterday and blood pressure was 200 systolic. He has been given appropriate medication but has been noncompliant taking his medication for the last month. No fever chills headache is noted no visual distortion. No overt chest pressure. Review of Systems Constitutional: Denies chills, Denies fever Eyes: denies blurred vision, denies pain Ears, nose, mouth and throat: Denies headache, Denies sore throat Cardiovascular: Reports as per HPI Gastrointestinal: Denies abdominal pain, Denies diarrhea, Denies nausea, Denies vomiting Musculoskeletal: Denies myalgias Past Medical History Past Medical History: Diabetes Mellitus, Hypertension Additional Past Medical History / Comment(s): Obesity, "on and off of diabetic medication" History of Any Multi-Drug Resistant Organisms: None Reported Past Surgical History: No Surgical Hx Reported Past Anesthesia/Blood Transfusion Reactions: No Reported Reaction Past Psychological History: Anxiety, Depression, PTSD Smoking Status: Never smoker Past Alcohol Use History: Rare Past Drug Use History: Marijuana - Past Family History Father Family Medical History: Hypertension Mother Family Medical History: CVA/TIA, Diabetes Mellitus, Hypertension Medications and Allergies Home Medications Medication Instructions Recorded Confirmed Type Losartan [Cozaar] 100 mg PO DAILY #60 tab 03/29/24 Rx Metoprolol Tartrate [Lopressor] 100 mg PO BID #60 tab 03/29/24 Rx amLODIPine 10 mg PO DAILY #30 tab 03/29/24 Rx hydrALAZINE HCL 50 mg PO QID #120 tab 03/29/24 Rx Allergies Allergy/AdvReac Type Severity Reaction Status Date / Time No Known Allergies Allergy Verified 03/29/24 15:19 Physical Exam Vitals: Vital Signs Temp Pulse Pulse Resp BP BP Pulse Ox 03/30/24 07:00 97.7 F 86 16 186/98 99 03/30/24 04:48 203/117 03/30/24 02:11 98.2 F 80 19 189/114 99 03/29/24 23:19 174/91 03/29/24 21:49 98.0 F 90 18 221/125 96 03/29/24 21:27 91 18 179/103 96 03/29/24 20:07 98 18 189/96 97 03/29/24 19:36 99 18 207/104 97 03/29/24 18:32 86 20 187/110 98 03/29/24 17:56 88 20 191/105 97 03/29/24 16:55 87 20 178/100 96 03/29/24 16:40 92 20 187/101 95 03/29/24 16:04 108 H 20 192/100 96 03/29/24 14:33 98.4 F 112 H 18 230/123 96 Intake and Output 03/29/24 03/30/24 03/30/24 22:59 06:59 14:59 Other: Voiding Method Toilet # Voids 0 2 Weight 147.418 kg - Constitutional General appearance: cooperative, no acute distress - EENT Eyes: EOMI - Neck Neck: no lymphadenopathy - Respiratory Respiratory: bilateral: diminished - Cardiovascular Rhythm: regular Heart sounds: normal: S1, S2 Abnormal Heart Sounds: no S3 Gallop - Gastrointestinal General gastrointestinal: soft, no tenderness - Psychiatric Psychiatric: A&O x's 3 Results CBC & Chem 7: 03/29/24 15:17 03/29/24 16:00 Labs: Abnormal Lab Results - Last 24 Hours (Table) 03/29/24 03/29/24 Range/Units 15:17 16:00 Plt Count 143 L (150-450) k/uL Neutrophils # 7.8 H (1.3-7.7) k/uL Sodium 135 L (137-145) mmol/L Carbon Dioxide 21 L (22-30) mmol/L Creatinine 0.50 L (0.66-1.25) mg/dL Glucose 171 H (74-99) mg/dL Thrombosis Risk Factor Assmnt - Choose All That Apply Any of the Below Risk Factors Present?: Yes Each Factor Represents 1 point: Age 41-60 years, Obesity (BMI >25) Thrombosis Risk Factor Assessment Total Risk Factor Score: 2 Thrombosis Risk Factor Assessment Level: Low Risk Assessment and Plan (1) Noncompliance with treatment Current Visit: Yes Status: Acute Code(s): Z91.199 - PT NONCOMPL WITH OTHER MED TRTMT AND REGIMEN D/T UNSP REASON SNOMED Code(s): 6951587 (2) Hypertensive urgency Current Visit: Yes Status: Acute Code(s): I16.0 - HYPERTENSIVE URGENCY SNOMED Code(s): 972853675 Plan: IV hydralazine push. Consult cardiology. Reconcile home medications. The patient is threatening to leave AGAINST MEDICAL ADVICE at this time. Time with Patient: Greater than 30
--- NOTE | 2024-03-30 12:15 | P.CRDCN ---
History of Present Illness History of present illness: HISTORY OF PRESENT ILLNESS: This is a 44-year-old male with a past medical history significant for hypertension. Patient does not follow with a research nutritionist. We have been asked to see the patient in consultation for hypertension. Patient examined at the bedside. Patient states yesterday he was at work when he began to have diarrhea and felt lightheaded. He states that Lili checked his blood pressure and his systolic blood pressure was noted to be around 200 so he came to the hospital. The patient does have a history of hypertension and is prescribed multiple interpretive medications. However the patient states he has not been taking any of his medications. Currently has no complaints of chest pain, chest pressure, or shortness of breath. DIAGNOSTICS: - EKG reveals sinus mechanism with no signs of acute ischemia - Chest xray negative for acute process - Current home cardiac medications include losartan 100 mg daily, metoprolol tartrate 100 mg twice a day, amlodipine 10 mg daily, and hydralazine 50 mg 4 times a day REVIEW OF SYSTEMS: At the time of my exam: CONSTITUTIONAL: Denies fever or chills. HEENT: Denies blurred vision, vision changes, or eye pain. Denies hemoptysis CARDIOVASCULAR: Denies chest pain. Denies orthopnea. Denies PND. Denies palpitations RESPIRATORY: Denies shortness of breath. GASTROINTESTINAL: Denies abdominal pain. Denies nausea or vomiting. HEMATOLOGIC: Denies bleeding disorders. GENITOURINARY: Denies any blood in urine. SKIN: Denies pruitis. Denies rash. PHYSICAL EXAM: VITAL SIGNS: Reviewed. GENERAL: Well-developed in no acute distress. HEENT: Head is normocephalic. Pupils are equal, round. Sclerae anicteric. Mucous membranes of the mouth are moist. Neck supple. No JVD or thyromegaly LUNGS: Respirations even and unlabored. Lungs essentially clear to auscultation bilaterally. HEART: Regular rate and rhythm. S1 and S2 heard. ABDOMEN: Soft. Nondistended. Nontender. EXTREMITIES: Normal range of motion. No clubbing or cyanosis. Peripheral pulses intact. No lower extremity edema NEUROLOGIC: Awake and alert. Oriented x 3. ASSESSMENT: Hypertensive emergency due to medication noncompliance History of hypertension Obesity: BMI 44.1 Marijuana use PLAN: Obtain 2D echo to assess cardiac structure and function Resume home cardiac medications Continue to monitor blood pressure Avoid IV PRN antihypertensive medications as this makes it difficult to determine appropriate oral regimen Further recommendations pending patient course Nurse practitioner note has been reviewed by physician. Signing provider agrees with the documented findings, assessment, and plan of care documented by HIGH SCHOOL TEACHER as a scribe. Past Medical History Past Medical History: Diabetes Mellitus, Hypertension Additional Past Medical History / Comment(s): Obesity, "on and off of diabetic medication" History of Any Multi-Drug Resistant Organisms: None Reported Past Surgical History: No Surgical Hx Reported Past Anesthesia/Blood Transfusion Reactions: No Reported Reaction Past Psychological History: Anxiety, Depression, PTSD Smoking Status: Never smoker Past Alcohol Use History: Rare Past Drug Use History: Marijuana - Past Family History Father Family Medical History: Hypertension Mother Family Medical History: CVA/TIA, Diabetes Mellitus, Hypertension Medications and Allergies Home Medications Medication Instructions Recorded Confirmed Type Losartan [Cozaar] 100 mg PO DAILY #60 tab 03/29/24 Rx Metoprolol Tartrate [Lopressor] 100 mg PO BID #60 tab 03/29/24 Rx amLODIPine 10 mg PO DAILY #30 tab 03/29/24 Rx hydrALAZINE HCL 50 mg PO QID #120 tab 03/29/24 Rx Allergies Allergy/AdvReac Type Severity Reaction Status Date / Time No Known Allergies Allergy Verified 03/29/24 15:19 Physical Exam Vitals: Vital Signs Temp Pulse Pulse Resp BP BP Pulse Ox 03/30/24 10:24 152/84 03/30/24 07:00 97.7 F 86 16 186/98 99 03/30/24 04:48 203/117 03/30/24 02:11 98.2 F 80 19 189/114 99 03/29/24 23:19 174/91 03/29/24 21:49 98.0 F 90 18 221/125 96 03/29/24 21:27 91 18 179/103 96 03/29/24 20:07 98 18 189/96 97 03/29/24 19:36 99 18 207/104 97 03/29/24 18:32 86 20 187/110 98 03/29/24 17:56 88 20 191/105 97 03/29/24 16:55 87 20 178/100 96 03/29/24 16:40 92 20 187/101 95 03/29/24 16:04 108 H 20 192/100 96 03/29/24 14:33 98.4 F 112 H 18 230/123 96 Intake and Output 03/29/24 03/30/24 03/30/24 22:59 06:59 14:59 Other: Voiding Method Toilet # Voids 0 2 Weight 147.418 kg Results 03/29/24 15:17 03/29/24 16:00 Cardiac Enzymes 03/29/24 Range/Units 16:00 AST 26 (17-59) U/L CBC 03/29/24 Range/Units 15:17 WBC 9.8 (3.8-10.6) k/uL RBC 5.68 (4.30-5.90) m/uL Hgb 16.0 (13.0-17.5) gm/dL Hct 46.0 (39.0-53.0) % Plt Count 143 L (150-450) k/uL Comprehensive Metabolic Panel 03/29/24 Range/Units 16:00 Sodium 135 L (137-145) mmol/L Potassium 4.1 (3.5-5.1) mmol/L Chloride 103 (98-107) mmol/L Carbon Dioxide 21 L (22-30) mmol/L BUN 13 (9-20) mg/dL Creatinine 0.50 L (0.66-1.25) mg/dL Glucose 171 H (74-99) mg/dL Calcium 9.3 (8.4-10.2) mg/dL AST 26 (17-59) U/L ALT 21 (4-49) U/L Alkaline Phosphatase 84 (38-126) U/L Total Protein 7.5 (6.3-8.2) g/dL Albumin 4.4 (3.5-5.0) g/dL Current Medications Generic Name Dose Route Start Last Admin Trade Name Freq PRN Reason Stop Dose Admin Acetaminophen 650 mg 03/30/24 01:18 03/30/24 02:15 Acetaminophen Tab 325 Mg Tab PO 650 mg Q6HR PRN Administration Fever and/ or Pain Amlodipine Besylate 10 mg 03/30/24 09:00 03/30/24 08:17 Amlodipine 10 Mg Tab PO 10 mg DAILY ERIC Administration Hydralazine HCl 50 mg 03/29/24 22:00 03/30/24 05:37 Hydralazine Hcl 50 Mg Tab PO 50 mg QID ERIC Administration Losartan Potassium 100 mg 03/30/24 09:00 03/30/24 08:17 Losartan 50 Mg Tab PO 100 mg DAILY ERIC Administration Metoprolol Tartrate 100 mg 03/29/24 21:00 03/30/24 08:17 Metoprolol Tartrate 50 Mg Tab PO 100 mg BID ERIC Administration Intake and Output 03/29/24 03/30/24 03/30/24 22:59 06:59 14:59 Other: Voiding Method Toilet # Voids 0 2 Weight 147.418 kg 03/29/24 15:17 03/29/24 16:00
--- NOTE | 2024-03-30 17:07 | CA ---
Transthoracic Echo Report Name: Panfilo Ortega Age: 44 Gender: M : 1980 Exam Date: 03/30/2024 10:23 Exam Location: [facility] Ht (in): 72 Wt (lb): 325 Ordering Physician: Bree Sanchez Attending/Referring Phys: [id number], Laura Reel Blade Bender Furnace Tender Crystal Dailey RDCS Procedure CPT: Indications: lv function, uncontrolled BP Cardiac Hx: Technical Quality: Technically difficult study Contrast 1: Definity Total Dose (mL): 2 Contrast 2: Total Dose (mL): MEASUREMENTS (Male / Female) Normal Values 2D ECHO LV Diastolic Diameter PLAX 4.5 cm 4.2 - 5.9 / 3.9 - 5.3 cm LV Systolic Diameter PLAX 3.2 cm IVS Diastolic Thickness 1.9 cm 0.6 - 1.0 / 0.6 - 0.9 cm LVPW Diastolic Thickness 1.2 cm 0.6 - 1.0 / 0.6 - 0.9 cm LV Relative Wall Thickness 0.7 RV Internal Dim ED PLAX 3.5 cm LA Volume 78.7 cm??? 18 - 58 / 22 - 52 cm??? LA Volume Index 28.1 cm???/m??? 16 - 28 cm???/m??? M-MODE Aortic Root Diameter MM 3.6 cm LA Systolic Diameter MM 4.5 cm LA Ao Ratio MM 1.2 AV Cusp Separation MM 2.6 cm DOPPLER AV Peak Velocity 132.2 cm/s AV Peak Gradient 7.0 mmHg AV Mean Velocity 95.6 cm/s AV Mean Gradient 3.9 mmHg AV Velocity Time Integral 26.2 cm LVOT Peak Velocity 108.1 cm/s LVOT Peak Gradient 4.7 mmHg LVOT Velocity Time Integral 23.8 cm MV Area PHT 5.1 cm??? Mitral E Point Velocity 95.0 cm/s Mitral A Point Velocity 70.0 cm/s Mitral E to A Ratio 1.4 MV Deceleration Time 149.1 ms MV E' Velocity 8.2 cm/s Mitral E to MV E' Ratio 11.6 FINDINGS Left Ventricle Severely increased septal wall thickness. Left ventricular cavity size normal. Normal left ventricular systolic function with no obvious regional wall motion abnormalities. Left ventricular ejection fraction is estimated at 55-60 %. Grade 1 diastolic dysfunction. Right Ventricle Mild right ventricular dilatation. Right ventricular systolic pressure within normal limits. Right Atrium Normal right atrial size. Left Atrium Moderately increased left atrial volume. Mildly increased left atrial area. Mitral Valve Structurally normal mitral valve. No mitral stenosis, regurgitation or prolapse. Aortic Valve Trileaflet aortic valve. No aortic valve stenosis or regurgitation. Tricuspid Valve Structurally normal tricuspid valve. Mild tricuspid regurgitation. Pulmonic Valve Structurally normal pulmonic valve. Trace pulmonic regurgitation. Pericardium No pericardial effusion. Aorta Normal size aortic root and proximal ascending aorta. CONCLUSIONS Normal LV function Mild RV dilatation Previewed by: Dr. Abad June MD (Electronically Signed) Final Date: 30 March 2024 17:07
[2024-03-30] MEDS: hydrALAZINE HCL 20 MG/ML 1 ML VIAL IVP STA (18:04)
[2024-03-31 07:37] VITALS: PULSE 80; RESP 17; TEMP 97.5
[2024-03-31] MEDS: hydrALAZINE HCL 50 MG TAB PO SCH (08:08)
[2024-03-31 08:27] VITALS: BP 208/114
--- NOTE | 2024-03-31 09:03 | P.DS ---
Providers Date of admission: 03/29/24 20:20 Attending physician: Mj Liu Consults: 03/30/24 08:22 Consult Physician Routine Consulting Provider: Abad June Consult Reason/Comments: hypertensive urgency Do you want consulting provider notified?: Already Contacted Primary care physician: Mj Liu - Discharge Diagnosis(es) (1) Diabetes mellitus Current Visit: Yes Status: Acute (2) Hypertensive urgency Current Visit: Yes Status: Acute (3) Noncompliance with treatment Current Visit: Yes Status: Acute Hospital Course: The patient is a 44-year-old male who was admitted with uncontrolled hypertension. Patient reportedly has been out of his medications for a month. Patient has a history of medication noncompliance and has not been seen in our office since June. Patient also has a history of diabetes and has not been taking those medications as well. Patient seen and evaluated by cardiology. Echo was normal. Patient continues to have elevated BP readings but reports his symptoms are improved. Patient is very eager to get home. Patient may be discharged when cleared by cardiology. Discussed with patient importance of routine follow-up appointments and he verbalized understanding. Patient seen and evaluated by nurse practitioner, physician in agreement with plan. Patient Condition at Discharge: Good Plan - Discharge Summary New Discharge Prescriptions: New hydrALAZINE HCL 50 mg PO QID #120 tab Metoprolol Tartrate [Lopressor] 100 mg PO BID #60 tab metFORMIN HCL [Glucophage] 1,000 mg PO BID-W/MEALS 30 Days #60 tab amLODIPine 10 mg PO DAILY #30 tab Losartan [Cozaar] 100 mg PO DAILY #60 tab Semaglutide [Rybelsus] 3 mg PO DAILY 30 Days #30 tab Discharge Medication List Losartan [Cozaar] 100 mg PO DAILY #60 tab 03/29/24 [Rx] Metoprolol Tartrate [Lopressor] 100 mg PO BID #60 tab 03/29/24 [Rx] amLODIPine 10 mg PO DAILY #30 tab 03/29/24 [Rx] hydrALAZINE HCL 50 mg PO QID #120 tab 03/29/24 [Rx] Semaglutide [Rybelsus] 3 mg PO DAILY 30 Days #30 tab 03/31/24 [Rx] metFORMIN HCL [Glucophage] 1,000 mg PO BID-W/MEALS 30 Days #60 tab 03/31/24 [Rx] Follow up Appointment(s)/Referral(s): Mj Liu MD [Primary Care Provider] - 1 Week Patient Instructions/Handouts: Hypertension (ED) Discharge Disposition: HOME SELF-CARE
--- NOTE | 2024-03-31 12:35 | P.PN ---
Subjective HISTORY OF PRESENT ILLNESS: This is a 44-year-old male with a past medical history significant for hypertension. Patient does not follow with a ic designer custom. We have been asked to see the patient in consultation for hypertension. Patient examined at the bedside. Patient states yesterday he was at work when he began to have diarrhea and felt lightheaded. He states that Lili checked his blood pressure and his systolic blood pressure was noted to be around 200 so he came to the hospital. The patient does have a history of hypertension and is prescribed multiple interpretive medications. However the patient states he has not been taking any of his medications. Currently has no complaints of chest pain, chest pressure, or shortness of breath. DIAGNOSTICS: - EKG reveals sinus mechanism with no signs of acute ischemia - Chest xray negative for acute process - Current home cardiac medications include losartan 100 mg daily, metoprolol tartrate 100 mg twice a day, amlodipine 10 mg daily, and hydralazine 50 mg 4 times a day 03/31/2024 Patient examined this morning bedside. Patient currently denies chest pain or pressure. He denies shortness of breath. Pressure this morning remains elevated at 170/110. Echocardiogram completed revealing ejection fraction 55 to 60%. PHYSICAL EXAM: VITAL SIGNS: Reviewed. GENERAL: Well-developed in no acute distress. HEENT: Head is normocephalic. Pupils are equal, round. Sclerae anicteric. Mucous membranes of the mouth are moist. Neck supple. No JVD or thyromegaly LUNGS: Respirations even and unlabored. Lungs essentially clear to auscultation bilaterally. HEART: Regular rate and rhythm. S1 and S2 heard. ABDOMEN: Soft. Nondistended. Nontender. EXTREMITIES: Normal range of motion. No clubbing or cyanosis. Peripheral pulses intact. No lower extremity edema NEUROLOGIC: Awake and alert. Oriented x 3. ASSESSMENT: Hypertensive emergency due to medication noncompliance History of hypertension Obesity: BMI 44.1 Marijuana use PLAN: 2D echo obtained and reviewed Patient's blood pressure remains elevated this morning. Increase hydralazine to 100 mg 3 times daily Continue additional cardiac medications Continue to monitor blood pressure Patient may be discharged home this afternoon if his blood pressure improves Patient states he does not wish to follow-up outpatient with cardiology and would like to just continue to see Dr. Liu. Nurse practitioner note has been reviewed by physician. Signing provider agrees with the documented findings, assessment, and plan of care documented by PIT CRANE OPERATOR as a scribe. Objective - Vital Signs Vital signs: Vital Signs Temp 97.5 F L 03/31/24 06:30 Pulse 80 03/31/24 09:06 Resp 17 03/31/24 06:30 BP 208/114 03/31/24 07:30 Pulse Ox 95 03/31/24 06:30 FiO2 Intake & Output 03/30/24 03/31/24 03/31/24 18:59 06:59 18:59 Intake Total 118 920 360 Balance 118 920 360 Intake: Oral 118 920 360 Other: Voiding Method Toilet # Voids 4 2 # Bowel Movements 1 - Labs CBC & Chem 7: 03/29/24 15:17 03/29/24 16:00
[2024-03-31] MEDS ORDERED: metFORMIN 500 MG TAB PO SCH (17:30)
[2024-04-10 19:39] LABS: Metanephrine, Free <25 pg/mL (< OR = 57); Normetanephrine, Free 163 pg/mL (< OR = 148); Total, Free (MN + NMN) 163 pg/mL (< OR = 205)
== END 2024-03-31 11:33 | disposition home or self-care (01) ==
LOC: EC 14:19 → 6NMEDSUR 20:20
PROVIDERS: ADMIT Family Medicine; ATTEND Family Medicine
DX: I16.0 Hypertensive urgency (principal); I10 Essential (primary) hypertension; E66.9 Obesity, unspecified; E11.9 Type 2 diabetes mellitus without complications; Z91.148 Patient's other noncompliance with medication regimen for other reason; Z79.899 Other long term (current) drug therapy; Z68.41 Body mass index [BMI] 40.0-44.9, adult
CPT/HCPCS: 96376 ×2; 96374; 96375; 99285; 36415; 93005; 93306; 83835; 80053; 83735; 85025; 83036; 71046; 70450; G0378 ×3; J2060; J0360 ×2; Q9957; J1920

== ENCOUNTER → 2024-04-26 | Outpatient (CLI) | payer BC ==
[2024-04-26 15:01] LABS: African American GFR (CKD) >90 (>60 ml/min/1.73 sqM); Blood Urea Nitrogen 12 mg/dL (9-20); Non-African American GFR(CKD) >90 (>60 ml/min/1.73 sqM)
--- NOTE | 2024-04-26 16:22 | CT ---
EXAMINATION TYPE: CT abdomen pelvis w con CT DLP: 2934.9 mGycm, Automated exposure control for dose reduction was used. 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 Coronal and sagittal reformats were performed. FINDINGS: LOWER CHEST: Unremarkable ABDOMEN LIVER: Unremarkable GALLBLADDER AND BILE DUCTS: Unremarkable. PANCREAS: Unremarkable. SPLEEN: Unremarkable. ADRENAL GLANDS: Right adrenal gland is unremarkable. Heterogenous predominantly fat-containing left a drenal mass measuring 9.7 x 6.7 x 7.1 cm (series 3, image 33). KIDNEYS AND URETERS: No evidence of hydronephrosis or renal calculus. The kidneys enhance symmetrical ly. Contrast is demonstrated within both collecting systems on the delayed phase. Bilateral extrarena l pelvises. PELVIS BLADDER: Incompletely distended but grossly unremarkable. REPRODUCTIVE: Coarse calcifications of the prostate gland are identified. ABDOMEN & PELVIS STOMACH AND BOWEL: Stomach and duodenum are unremarkable. No focal bowel wall thickening or surroundi ng inflammatory changes. Redemonstration of a fat-containing mass within the sigmoid colon measuring grossly 8.0 x 1.6 cm. Enteric contrast reaches the mid small bowel. No evidence of bowel obstruction. PERITONEUM: No evidence of pneumoperitoneum or free fluid. VASCULATURE: No evidence of aortic aneurysm. MUSCULOSKELETAL: No acute osseous abnormalities LYMPH NODES: No evidence for lymphadenopathy. SOFT TISSUE/ABDOMINAL WALL: Unremarkable IMPRESSION: 1. 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 2. Redemonstration of a large lipoma within the sigmoid colon. No evidence of obstruction. [facility], , 04/26/2024 4:20 PM
== END | disposition home or self-care (01) ==
LOC: RADCTMAIN 13:36
PROVIDERS: ATTEND Family Medicine
DX: E27.5 Adrenomedullary hyperfunction (principal); D17.5 Benign lipomatous neoplasm of intra-abdominal organs; I10 Essential (primary) hypertension; E27.8 Other specified disorders of adrenal gland
CPT/HCPCS: 82565; 84520; 74177; 36415; Q9967